=== PATIENT | female | born 1950 | race Caucasian/White ===

== ENCOUNTER 2017-08-30 16:49 | Inpatient (IN) | payer MEDICARE, BC ==
[~2017-08-30] VITALS: Ht 167.6 cm; Wt 107.3 kg
--- NOTE | ~2017-08-30 | HEMODYNAMI ---
PATIENT:MAURY MCGOWAN MEDICAL RECORD: [id number] : 46 LOCATION:[facility] [address] [id number] ADMISSION DATE: 08/30/17 Generatedon:09/01/201714:03 Patient name: MAURY MCGOWAN Patient #: [id number] SSN: : 1950 Date of study: 09/01/2017 Page: Of Hemodynamic Procedure Report Patient Data Patient Demographics Procedure consent was obtained First Name: MAURY Gender: Female Last Name: JUAN M : 1950 Patient #: [id number] Age: 66 year(s) Race: Unknown Additional ID: [id number] Contact details Address: [address] [place] [address] State: [place] City: [facility] Zip code: [address] Past Medical History Allergies: No known allergies Admission Admission Data Admission Date: 08/30/2017 Admission Time: 16:49 Admit Source: Other Room #: D.[facility]8 Lab Results Lab Result Date: 09/01/2017 Lab Result Time: 5:20 Biochemistry Name Units Result Min Max BUN mg/dl 23 --(----)-* 7 18 Creatinine mg/dl 1 --(--*-)-- 0.6 1.3 CBC Name Units Result Min Max Hematocrit % 39 *-(----)-- 42 54 Hemoglobin g/dl 12.7 -*(----)-- 13.5 17.5 Procedure Procedure Types Cath Procedure Diagnostic Procedure LHC LHC w/Coronaries w/Grafts Sedation Charges Moderate Sedation up to 15 minutes Procedure Description Procedure Date Procedure Date: 09/01/2017 Procedure Start Time: 13:36 Procedure End Time: 13:58 Procedure Staff Name Function Asif Salinas MD Performing Physician Aline Proctor RT Monitor Paulo Castillo RT Scrub Siria Mejia RN Nurse Procedure Data Cath Procedure Fluoroscopy Diagnostic fluoroscopy Total fluoroscopy Time: 4 time: 4 min min Diagnostic fluoroscopy Total fluoroscopy dose: 804 dose: 804 mGy mGy Contrast Material Contrast Material Type Amount (ml) Isovue 300 82 Entry Location Entry Primary Successful Side Size Upsize Upsize Entry Closure Succes sful Closure Location (Fr) 1 (Fr) 2 (Fr) Remarks Device Remarks Femoral Right 5 Fr Exoseal artery Estimated blood loss: 5 ml Diagnostic catheters Device Type Used For End Catheter Placement MULTIPACK JL 4.0 5Fr Procedure catheter DIAGNOSTIC AR MOD 5Fr Procedure Catheter ([id number]) DIAGNOSTIC IM 5Fr Procedure catheter ([id number]) MULTIPACK Pigtail 5 Fr Procedure catheter Procedure Complications No complications Procedure Medications Medication Administration Route Dosage Oxygen NC 2 l/min Lidocaine 2% added to field 20 Heparin Flush Bag added to field 2 bags (1000units/500ml NS) 0.9% NaCl I.V. 100 ml/hr Versed I.V. 1 mg Fentanyl I.V. 50 mcg Versed I.V. 1 mg Fentanyl I.V. 50 mcg Hemodynamics Rest HGB: 12.7 (g/dl) Heart Rate: 57 (bpm) Pressure Samples Time Site Value (mmHg) Purpose Heart Use Rate(bpm) 13:51 LV 103/4,20 Snapshot 66 13:52 AO 99/57(73) Pullback 68 13:52 LV 125/3,18 Pullback 68 Gradients Valve Time Site 1 Site 2 Mean SEP/DFP Peak To Heart Use (mmHg) (sec/min) Peak Rate (mmHg) (bpm) Aortic 13:52 LV AO 12 16 26 68 125/3,18 99/57(73) Calculations Valve P-P Mean Valve Index Valve Source Name Gradient Area Flow (cm2) Aortic 26 12 26 12 Snapshots Pre Cath Intra NCS Post Cath Vital Signs Time Heart Resp SPO2 etCO2 NIBP Rhythm Pain Sedation Rate (ipm) (%) (mmHg) (mmHg) Status Level (bpm) 13:22:47 78 20 91 25.4 103/53(71) NSR 0 (11) 10(A) , No pain 13:27:08 65 17 95 29.2 99/48(82) NSR 0 (11) 10(A) , No pain 13:31:26 55 18 94 35.2 89/48(69) NSR 0 (11) 10(A) , No pain 13:35:44 57 16 98 2.9 85/43(61) NSR 0 (11) 9(A) , No pain 13:40:49 61 14 95 35.9 88/57(73) NSR 0 (11) 9(A) , No pain 13:44:59 66 12 93 32.2 88/56(75) NSR 0 (11) 9(A) , No pain 13:49:15 65 12 94 35.2 84/49(71) NSR 0 (11) 9(A) , No pain 13:53:31 64 13 93 36.7 95/45(64) NSR 0 (11) 9(A) , No pain 13:57:49 66 14 97 21.6 91/49(67) NSR 0 (11) 10(A) , No pain Medications Time Medication Route Dose Verified Delivered Reason Notes Effe ctiveness by by 13:28:00 0.9% NaCl I.V. 100 Asif Buffie Per ml/hr Brad Mejia RN physician 13:28:38 Oxygen NC 2 Asif Buffie used for l/min Brad Mejia RN procedure 13:28:45 Lidocaine 2% added 20ml Asif Asif for local to vial Brad Salinas MD anesthetic field 13:28:51 Heparin Flush added 2 Asif Asif used for Bag to bags Brad Salinas MD procedure (1000units/500ml field NS) 13:30:22 Versed I.V. 1 mg Asif Buffie for Brad Mejia RN sedation 13:30:26 Fentanyl I.V. 50 Asif Buffie for mcg Brad Mejia RN sedation 13:36:48 Versed I.V. 1 mg Asif Buffie for Brad Mejia RN sedation 13:36:53 Fentanyl I.V. 50 Asif Buffie for [facility] Brad Mejia RN sedation Procedure Log Time Note 13:02:36 Informed consent obtained and on chart 13:02:41 Admit Source: Other 13:05:20 Diagnostic Cath status Elective 13:05:25 Time tracking: Regular hours (M-F 7:00 - 5:00) 13:05:28 Plan of Care:Hemodynamics will remain stable., Cardiac rhythm will remain stable., Comfort level will be maintained., Respiratory function will remain adequate., Patient/ family verbilizes understanding of procedure., Procedure tolerated without complication., Recovers from procedure without complications.. 13:05:31 Aline Proctor RT(R) sent for patient. Start room use. 13:06:18 Lab Result : BUN 23 mg/dl 13:06:18 Lab Result : Creatinine 1 mg/dl 13:06:18 Lab Result : Hemoglobin 12.7 g/dl 13:06:18 Lab Result : Hematocrit 39 % 13:06:21 Lab results completed and on chart. 13:15:36 Patient received from Med II to CCL 2 Alert and oriented. Tansferred to table in Supine position. 13:15:38 Warm blankets applied, and jaime hugger turned on for patient comfort. 13:15:38 Correct patient and procedure confirmed by team. 13:15:39 ECG and BP/O2 sat monitors applied to patient. 13:21:34 Vital chart was started 13:21:37 Baseline sample Acquired. 13:21:44 Rhythm: sinus rhythm 13:21:45 Full Disclosure recording started 13:21:56 H&P Date Dictated: 08/30/2017 Within 30 days and on chart.. 13:21:57 Pre-procedure instructions explained to patient. 13:21:57 Pre-op teaching completed and patient verbalized understanding. 13:21:59 Family in patients room. 13:22:00 Patient NPO since Midnight. 13:22:09 Patient allergic to No known allergies 13:22:12 Is patient on blood thinner?Yes 13:22:22 LAST DOSE PLAVIX 7.14 13:22:24 Patient diabetic? No. 13:22:27 Patient not . Patient is over age 55. 13:22:30 Previous problem with sedation/anesthesia? No ? 13:22:31 Snore? Yes 13:22:32 Sleep apnea? Yes 13:22:32 Deviated septum? No 13:22:33 Opens mouth fully? Yes 13:22:34 Sticks out tongue? Yes 13:22:35 Airway obstruction? No ? 13:22:48 Dentures? No ? 13:22:53 Pre procedure: right dorsailis pedis pulse 2+ Normal; easily identifiable; not easily obliterated 13:22:56 Patient pain scale 0/10 ?. 13:23:04 IV patent on arrival in left forearm with 0.9% NaCl at [facility]. 13:23:09 Right groin area was prepped with chlora-prep and draped in sterile fashion 13:23:10 Alarms reviewed by R. N. 13:23:11 Sharps counted by scrub and verified by R.N. 13:23:23 Use device set Femoral Dx 13:23:24 ACIST Syringe (21857) opened to sterile field. 13:23:25 Bag Decanter (2002S) opened to sterile field. 13:23:27 ACIST Manifold (74219) opened to sterile field. 13:23:28 ACIST Hand Control (26653) opened to sterile field. 13:23:29 Tegaderm 4 x 4 (1626W) opened to sterile field. 13:23:30 Medline Cath Pack ([id number]) opened to sterile field. 13:23:31 DIAGNOSTIC WIRE .035 260cm J wire (183246) opened to sterile field. 13:23:32 DIAGNOSTIC Multipack 5Fr catheter set ([id number]) opened to sterile field. 13:23:33 SHEATH Prelude 5Fr 0.035 (NDC-2V-32-035) opened to sterile field. 13:28:00 0.9% NaCl 100 ml/hr I.V. was administered by Siria Mejia RN; Per physician; 13:28:38 Oxygen 2 l/min NC was administered by Siria Mejia RN; used for procedure; 13:28:45 Lidocaine 2% 20ml vial added to field was administered by Asif Salinas MD; for local anesthetic; 13:28:51 Heparin Flush Bag (1000units/500ml NS) 2 bags added to field was administered by Asif Salinas MD; used for procedure; 13:29:01 --------ALL STOP TIME OUT------ 13:29:01 Final Timeout: patient, procedure, and site verified with staff and physician. All members of the team are in agreement. 13:29:03 Right groin site verified by team. 13:29:05 Physical assessment completed. ASA score P 2 - A patient with mild systemic disease as per Asif Salinas MD. 13:29:08 Sedation plan: IV Moderate Sedation Medication:Versed, Fentanyl 13:30:22 Versed 1 mg I.V. was administered by Siria Mejia RN; for sedation; 13:30:26 Fentanyl 50 mcg I.V. was administered by Siria Mejia RN; for sedation; 13:36:00 Procedure started. 13:36:07 Local anesthetic to right femoral artery with Lidocaine 2% by Asif Salinas MD.INITIAL ACCESS ONLY 13:36:38 Zero performed for pressure channel P1 13:36:48 Versed 1 mg I.V. was administered by Siria Mejia RN; for sedation; 13:36:49 Zero performed for pressure channel P1 13:36:53 Fentanyl 50 mcg I.V. was administered by Siria Mejia RN; for sedation; 13:38:49 A 5 Fr sheath was inserted into the Right Femoral artery 13:38:57 A MULTIPACK JL 4.0 5Fr catheter was advanced over the wire and used for Procedure. 13:39:57 LCA angiography performed. 13:40:09 Catheter exchanged over wire. 13:40:50 A DIAGNOSTIC AR MOD 5Fr Catheter ([id number]) was advanced over the wire and used for Procedure. 13:41:13 RCA angiography performed. 13:41:44 SVG to RCA occluded. 13:42:37 SVG to Circ occluded. 13:42:43 Catheter exchanged over wire. 13:42:55 A DIAGNOSTIC IM 5Fr catheter ([id number]) was advanced over the wire and used for Procedure. 13:46:01 AGRAWAL to LAD angiography performed. 13:50:23 Catheter exchanged over wire. 13:50:44 A MULTIPACK Pigtail 5 Fr catheter was advanced over the wire and used for Procedure. 13:51:33 LV gram done using WHIPPLE 13:51:36 Injector settings: Ml/sec: 10, Volume: 20, 13:51:53 LV hemodynamics recorded. 13:52:08 EF : 40 % 13:52:59 Catheter removed. 13:53:06 EXOSEAL 5Fr (EX500) opened to sterile field. 13:54:10 Sheath removed intact; hemostasis achieved with Exoseal to the Right Femoral artery. 13:54:13 Procedure ended.(Physican Out) 13:54:21 Fluoroscopy time 04.00 minutes. 13:54:24 Flurop Dose total: 804 13:54:24 Fluoroscopy dose: 804 mGy 13:54:28 Contrast amount:Isovue 300 82ml. 13:54:29 Sharps counted by scrub and verified by R.N. 13:54:33 Post-op/insertion site Right Femoral artery dressed using a 4 x 4 and Tegaderm. 13:54:37 Post right femoral artery:stable, soft, clean and dry 13:54:41 Post-procedure physical assessment completed. ASA score P 2 - A patient with mild systemic disease as per Asif Salinas MD. 13:54:44 Post procedure rhythm: sinus rhythm 13:54:47 Estimated blood loss: 5 ml 13:56:45 Post procedure instruction explained to patient.Patient verbalizes understanding. 13:56:46 Patient needs reinforcement of post procedure teaching. 13:56:54 Procedure type changed to Cath procedure, Diagnostic procedure, LHC, LHC w/Coronaries w/Grafts, Sedation Charges, Moderate Sedation up to 15 minutes 13:57:56 Procedure and supply charges have been captured, reviewed, submitted and are correct. 13:58:00 Procedure Complication : No complications 13:58:03 Vital chart was stopped 13:58:07 See physician's report for complete and final results. 13:58:08 Report given to PCU. 13:58:15 Patient transfered to PCU with Bed. 13:58:17 Procedure ended. 13:58:17 Full Disclosure recording stopped 13:58:20 End room use (Document Last) Device Usage Item Name Manufacture Quantity Catalog Number Hospital Part Current M inimal Lot# / Charge Number Stock Stock Serial# Code ACIST Syringe Acist 1 89313 168854 422447 673753 2 0 (48986) [employer] Bag Decanter Microtek 1 2001S 440681 22039 214354 5 (2001S) Medical Inc. ACIST Manifold Acist 1 15281 583252 508032 342659 5 (87692) [employer] ACIST Hand Acist 1 36950 249264 242036 668034 5 Control (25488) [employer] Tegaderm 4 x 4 3M 1 1626W 246139 829500 424288 5 (1626W) Medline Cath Cardinal 1 [id number] 243411 29280 775563 5 Pack Health ([id number]) DIAGNOSTIC WIRE St Cresencio 1 574423 706343 779571 590809 3 0 .035 260cm J wire (732325) DIAGNOSTIC Cardinal 1 BE6029 843810 87922 234193 3 0 Multipack 5Fr Health catheter set ([id number]) SHEATH Prelude Merit 1 IMR-8M-45-035 739027 706090 681622 5 5Fr 0.035 Medical (RHU-0J-26-035) MULTIPACK JL Cardinal 1 765043 5 4.0 5Fr Health catheter DIAGNOSTIC AR Cardinal 1 [id number] 363940 983284 284147 1 5 MOD 5Fr Health Catheter ([id number]) DIAGNOSTIC IM Cardinal 1 [id number] 564241 023353 441152 5 5Fr catheter Health ([id number]) MULTIPACK Cardinal 1 [id number] 5 Pigtail 5 Fr Health catheter EXOSEAL 5Fr Cardinal 1 EX500 315067 361724 499266 1 0 (EX500) Health Signature Audit Jackson Stage Time Signature Unsigned Intra-Procedure 09/01/2017 Aline Proctor 2:03:07 PM RT(R) Signatures Monitor : Aline Proctor Signature : RT Date : Time : [address] [address]
[2017-08-30] MEDS ORDERED: BAYER CHEWABLE81 MG PO (17:24)
[2017-08-30] MEDS ORDERED: NITROSTAT0.4 MG SL (17:26)
[2017-08-30] MEDS ORDERED: PRAVACHOL40 MG PO (17:27)
[2017-08-30] MEDS ORDERED: PLAVIX75 MG PO (17:28)
[2017-08-30] MEDS ORDERED: NORVASC5 MG PO (17:28)
[2017-08-30] MEDS ORDERED: LASIX40 MG PO (17:29)
[2017-08-30] MEDS ORDERED: RANEXA1000 MG PO (17:30)
[2017-08-30] MEDS ORDERED: ACCUPRIL40 MG PO (17:31)
[2017-08-30] MEDS ORDERED: TOPROL XL50 MG PO (17:32)
[2017-08-30] MEDS ORDERED: ISOSORBIDE MONO30 M1 PO (17:34)
[2017-08-30 17:40] VITALS: BP 105/50; BMI 38.5
[2017-08-30 19:35] LABS: BASOPHILS 0 % (0-2); EOSINOPHILS 0 % (0-7); HEMATOCRIT 37.2 % (36.0-48.0); HEMOGLOBIN 12.4 g/dL (12-16); IMMATURE GRANULOCYTES 0.3 % (0-5); LYMPHOCYTES 11.4 % (15-50); MCHC 33.3 g/dL (31.0-37.0); MCV 89.9 fL (80.0-100.0); MEAN PLATELET VOLUME 10.1 fL (7.4-10.4); MONOCYTES 0.8 % (2-11); NEUTROPHILS 87.5 % (40-80); PLATELET COUNT 227 10x3/uL (130-400); RBC 4.14 10x6/uL (4.00-5.40); RDW 13.4 % (11.5-14.5); WBC 7.4 10x3/uL (4.8-10.8)
[2017-08-30 20:03] LABS: CALC OSMOLALITY 287 mosm/kg (275-300); CALCIUM 9.6 mg/dL (8.5-10.1); CARBON DIOXIDE 26.3 mmol/L (21.0-32.0); CHLORIDE - SERUM 105 mmol/L (98-107); CKMB 3.4 U/L (0.0-3.6); CREATINE KINASE 59 UL (21-215); CREATININE - SERUM 1.3 mg/dL (0.6-1.3); GLUCOSE 174 mg/dL (74-106); POTASSIUM - SERUM 3.9 mmol/L (3.5-5.1); SODIUM 140 mmol/L (136-145); UREA NITROGEN 26 mg/dL (7-18); eGFR NON AFRICAN AMERICAN 43 mL/min (90-120)
[2017-08-30 20:06] LABS: TROPONIN-I 0.276 ng/mL (0.000-0.060)
[2017-08-30 20:51] VITALS: BP 137/79
[2017-08-31 00:37] VITALS: BP 107/48
[2017-08-31 02:39] LABS: CHOL - HDL RATIO 2.8 ratio (2.3-4.1); CHOLESTEROL, TOTAL 210 mg/dL (0-200); CREATINE KINASE 87 UL (21-215); HDL CHOLESTEROL 74 mg/dL (32-96); LDL CHOLESTEROL 99 mg/dL (0-100); LDL-HDL RATIO 1.3 ratio (1.5-3.5); TRIGLYCERIDE 188 mg/dL (30-200)
[2017-08-31 02:41] LABS: TROPONIN-I 0.788 ng/mL (0.000-0.060)
[2017-08-31 06:06] VITALS: BP 96/54
[2017-08-31 07:36] LABS: CKMB 13.7 U/L (0.0-3.6); CREATINE KINASE 104 UL (21-215)
[2017-08-31 07:37] LABS: TROPONIN-I 1.589 ng/mL (0.000-0.060)
[2017-08-31 08:48] VITALS: BP 115/72
[2017-08-31 09:07] LABS: BASOPHILS 0 % (0-2); EOSINOPHILS 0 % (0-7); HEMATOCRIT 37.6 % (36.0-48.0); HEMOGLOBIN 12.5 g/dL (12-16); IMMATURE GRANULOCYTES 0.2 % (0-5); LYMPHOCYTES 6.3 % (15-50); MCHC 33.2 g/dL (31.0-37.0); MCV 90.4 fL (80.0-100.0); MONOCYTES 4.3 % (2-11); NEUTROPHILS 89.2 % (40-80); PLATELET COUNT 239 10x3/uL (130-400); RBC 4.16 10x6/uL (4.00-5.40); RDW 13.7 % (11.5-14.5); WBC 15.7 10x3/uL (4.8-10.8)
[2017-08-31 09:15] LABS: CALCIUM 9.5 mg/dL (8.5-10.1); CARBON DIOXIDE 28.5 mmol/L (21.0-32.0); POTASSIUM - SERUM 4.5 mmol/L (3.5-5.1)
[2017-08-31 11:58] VITALS: BP 112/62
[2017-08-31 17:09] VITALS: BP 110/58
[2017-08-31 20:00] VITALS: BP 111/63
[2017-09-01] VITALS: BP 107/47
[2017-09-01 04:00] VITALS: BP 135/69
[2017-09-01 06:11] LABS: BASOPHILS 0.1 % (0-2); EOSINOPHILS 0.1 % (0-7); HEMOGLOBIN 12.7 g/dL (12-16); IMMATURE GRANULOCYTES 0.3 % (0-5); MCHC 32.6 g/dL (31.0-37.0); MCV 92.2 fL (80.0-100.0); MEAN PLATELET VOLUME 10.4 fL (7.4-10.4); MONOCYTES 9.6 % (2-11); NEUTROPHILS 79.9 % (40-80); PLATELET COUNT 236 10x3/uL (130-400); RBC 4.23 10x6/uL (4.00-5.40); WBC 14.6 10x3/uL (4.8-10.8)
[2017-09-01 06:31] LABS: ALBUMIN 3.2 g/dL (3.4-5.0); ANION GAP 10.8 mmol/L (8-16); BILIRUBIN - TOTAL 0.63 mg/dL (0.2-1.3); CALCIUM 9.1 mg/dL (8.5-10.1); CARBON DIOXIDE 28.3 mmol/L (21.0-32.0); POTASSIUM - SERUM 4.1 mmol/L (3.5-5.1)
[2017-09-01 09:39] VITALS: BP 149/81
[2017-09-01 13:13] VITALS: Ht 167.6 cm; Wt 107.3 kg
[2017-09-01 13:30] VITALS: BP 119/65
[2017-09-01 17:09] VITALS: BP 105/46
[2017-09-01 18:58] LABS: APPEARANCE CLEAR (CLEAR); BILIRUBIN NEGATIVE (NEGATIVE); COLOR YELLOW (YELLOW); GLUCOSE NEGATIVE (NEGATIVE); KETONE NEGATIVE (NEGATIVE); NITRITE NEGATIVE (NEGATIVE); PROTEIN NEGATIVE (NEGATIVE); UROBILINOGEN NORMAL (NORMAL)
[2017-09-01 19:11] LABS: ERYTHROCYTE SEDIMENTATION RATE 5 mm/hr (0-30)
[2017-09-01 20:29] VITALS: BP 94/47
[2017-09-02 01:05] VITALS: BP 116/57
[2017-09-02 05:10] VITALS: BP 103/76
[2017-09-02 05:39] LABS: BASOPHILS 0.3 % (0-2); EOSINOPHILS 0.8 % (0-7); HEMATOCRIT 37.2 % (36.0-48.0); IMMATURE GRANULOCYTES 0.3 % (0-5); LYMPHOCYTES 22.3 % (15-50); MCH 29.7 pg (26.0-34.0); MCHC 32.3 g/dL (31.0-37.0); MCV 92.1 fL (80.0-100.0); MEAN PLATELET VOLUME 10.2 fL (7.4-10.4); NEUTROPHILS 64.3 % (40-80); PLATELET COUNT 214 10x3/uL (130-400); RBC 4.04 10x6/uL (4.00-5.40); RDW 13.8 % (11.5-14.5)
[2017-09-02 06:09] LABS: ALBUMIN 2.9 g/dL (3.4-5.0); ANION GAP 7.1 mmol/L (8-16); BILIRUBIN - TOTAL 0.79 mg/dL (0.2-1.3); CALCIUM 9.1 mg/dL (8.5-10.1); CREATININE - SERUM 0.9 mg/dL (0.6-1.3); POTASSIUM - SERUM 4.1 mmol/L (3.5-5.1); PROTEIN - SERUM 6.6 g/dL (6.4-8.2)
[2017-09-02 06:16] LABS: WBC 7.3 10x3/uL (4.8-10.8)
[2017-09-02 08:36] VITALS: BP 119/61
[2017-09-02] MEDS ORDERED: PROTONIX40 MG PO (10:31)
[2017-09-02 12:43] VITALS: BP 106/61
== END 2017-09-02 14:28 | disposition home or self-care (01) | DRG 287 ==
LOC: D.M2 16:49
PROVIDERS: Family Medicine; Internal Medicine Cardiovascular Disease; Internal Medicine Nephrology
PROC: B2111ZZ Fluoroscopy of Multiple Coronary Arteries using Low Osmolar Contrast (ICD-10-PCS; 2017-09-01)
PROC: B2151ZZ Fluoroscopy of Left Heart using Low Osmolar Contrast (ICD-10-PCS; 2017-09-01)
PROC: 4A023N7 Measurement of Cardiac Sampling and Pressure, Left Heart, Percutaneous Approach (ICD-10-PCS; 2017-09-01)
PROC: B2131ZZ Fluoroscopy of Multiple Coronary Artery Bypass Grafts using Low Osmolar Contrast (ICD-10-PCS; principal; 2017-09-01 11:45)
DX: I25.110 Atherosclerotic heart disease of native coronary artery with unstable angina pectoris (principal); I24.8 Other forms of acute ischemic heart disease; N17.9 Acute kidney failure, unspecified; I10 Essential (primary) hypertension; R73.9 Hyperglycemia, unspecified; Z87.891 Personal history of nicotine dependence